=== PATIENT | female | born 1950 | race Caucasian/White ===

== ENCOUNTER → 2020-04-07 | Outpatient (CLI) | payer MEDICARE | LOC: MRI 09:14 | DX: M51.16 Intervertebral disc disorders with radiculopathy, lumbar region (principal); M25.78 Osteophyte, vertebrae; M48.061 Spinal stenosis, lumbar region without neurogenic claudication; Z98.890 Other specified postprocedural states | CPT/HCPCS: 36415; 72158; 82565; A9577 ==

== ENCOUNTER → 2020-08-09 | Outpatient (CLI) | payer MEDICARE | LOC: US 13:26 | DX: R92.8 Other abnormal and inconclusive findings on diagnostic imaging of breast (principal); M54.5 Low back pain; N60.12 Diffuse cystic mastopathy of left breast; Z98.1 Arthrodesis status | CPT/HCPCS: 72100; 76641-LT ==

== ENCOUNTER → 2020-08-29 | Outpatient (CLI) | payer MEDICARE | LOC: KOH-I 15:29 | DX: S92.101A Unspecified fracture of right talus, initial encounter for closed fracture (principal) | CPT/HCPCS: 73620 ==

== ENCOUNTER → 2020-09-22 | Outpatient (CLI) | payer MEDICARE | LOC: KOH-I 10:05 | DX: M79.671 Pain in right foot (principal); R93.6 Abnormal findings on diagnostic imaging of limbs; Z98.890 Other specified postprocedural states | CPT/HCPCS: 73630 ==

== ENCOUNTER → 2020-10-26 | Outpatient (CLI) | payer MEDICARE | LOC: US 09:30 | DX: R11.0 Nausea (principal); R10.11 Right upper quadrant pain | CPT/HCPCS: 76705 ==

== ENCOUNTER → 2020-11-08 | Outpatient (CLI) | payer MEDICARE | LOC: NM 08:41 | DX: R10.11 Right upper quadrant pain (principal) | CPT/HCPCS: 78227; A9537; J2805 ==

== ENCOUNTER → 2021-04-21 | Outpatient (CLI) | payer MEDICARE | LOC: KOH-I 11:16 | DX: B34.9 Viral infection, unspecified (principal); R91.1 Solitary pulmonary nodule | CPT/HCPCS: 71046; U0003 ==

== ENCOUNTER → 2021-05-11 | Outpatient (CLI) | payer MEDICARE | LOC: CT 13:55 | DX: J45.909 Unspecified asthma, uncomplicated (principal); R05.9 Cough, unspecified; R91.1 Solitary pulmonary nodule; J98.11 Atelectasis | CPT/HCPCS: 71260; 82565; 84520; Q9967 ==

== ENCOUNTER → 2021-08-09 | Outpatient (CLI) | payer MEDICARE | LOC: CT 13:00 → KOH-I 13:00 → CT 13:29 | DX: R91.1 Solitary pulmonary nodule (principal); J98.11 Atelectasis | CPT/HCPCS: 71250 ==

== ENCOUNTER → 2021-08-25 | Outpatient (CLI) | payer MEDICARE | LOC: MAMO 14:30 | DX: Z12.31 Encounter for screening mammogram for malignant neoplasm of breast (principal) | CPT/HCPCS: 77063; 77067 ==

== ENCOUNTER 2021-09-23 09:32 | Emergency (ER) | payer MEDICARE ==
[2021-09-23 10:16] LABS: HEMOGLOBIN 13.5 gm/dl (12.3-15.3); RED BLOOD COUNT 4.65 M/UL (4.00-5.10); WHITE BLOOD COUNT 7.8 K/UL (4.5-11.0)
[2021-09-23 10:37] LABS: BUN/CREATININE RATIO 24 (0-10)
== END 2021-09-23 14:05 | disposition other institution (70) ==
LOC: ER1 09:32
PROVIDERS: Emergency Medicine
DX: I63.9 Cerebral infarction, unspecified (principal); R47.1 Dysarthria and anarthria; R00.0 Tachycardia, unspecified; Z51.81 Encounter for therapeutic drug level monitoring
CPT/HCPCS: 70450; 70496; 70498; 71045; 80053; 82550; 82553; 84484; 85025; 85610; 85730; 93005; 99285; J2997; Q9967

== ENCOUNTER → 2021-10-26 | Outpatient (CLI) | payer MEDICARE | LOC: RAD 10:06 | DX: M48.061 Spinal stenosis, lumbar region without neurogenic claudication (principal) | CPT/HCPCS: 72110; 73650 ==

== ENCOUNTER → 2021-10-27 | Outpatient (CLI) | payer MEDICARE | LOC: RAD 14:36 | DX: M79.672 Pain in left foot (principal); M19.072 Primary osteoarthritis, left ankle and foot | CPT/HCPCS: 73630 ==